=== PATIENT | male | born 1950 | race Caucasian/White ===

== ENCOUNTER → 2019-12-29 | Outpatient (CLI) | payer OTHER ==
[~2019-12-29] MED LIST: REGADENOSON 0.4 MG/5 ML PF SYG IVP SCH
== END | disposition home or self-care (01) ==
LOC: SHCH 08:52 → EDUNIT# 09:00
PROVIDERS: ATTEND Internal Medicine Cardiovascular Disease
DX: R06.02 Shortness of breath (principal)
CPT/HCPCS: 78452; 93017; 96374; A9500 ×2; J2785

== ENCOUNTER → 2019-12-29 | Outpatient (CLI) | payer OTHER | END | disposition home or self-care (01) | LOC: SHCH 09:22 | PROVIDERS: ATTEND Internal Medicine Cardiovascular Disease | DX: I65.22 Occlusion and stenosis of left carotid artery (principal) | CPT/HCPCS: 93880 ==

== ENCOUNTER 2020-01-26 07:32 | Day surgery (SDC) | payer OTHER ==
[2020-01-25 11:33] LABS: BASOPHILS % (AUTO) 0.7 % (0.0-5.0); HEMATOCRIT 45.2 % (42-54); LYMPHOCYTES % (AUTO) 16.7 % (21.0-51.0); MEAN CORPUSCULAR HEMOGLOBIN 28.9 pg (27.0-33.0); MEAN CORPUSCULAR HGB CONC 31.6 g/dL (32.0-36.0); MEAN CORPUSCULAR VOLUME 91.5 fL (79-99); MONOCYTES % (AUTO) 10.7 % (3.0-13.0); NEUTROPHILS % (AUTO) 70.3 % (40.0-77.0); PLATELET COUNT (AUTO) 321 K/uL (130-400); RED BLOOD CELL COUNT(AUTO) 4.94 MIL/uL (4.50-6.20); RED CELL DISTRIBUTION WIDTH 14.4 % (11.0-15.5)
[2020-01-25 11:41] LABS: CREATININE 1.4 mg/dL (0.5-1.5); POTASSIUM 4.5 mmol/L (3.5-5.1)
[2020-01-25 11:42] LABS: APPEARANCE,URINE Clear (CLEAR); BILIRUBIN,URINE Negative (NEGATIVE); COLOR,URINE Yellow (YELLOW); GLUCOSE, URINE (UA) Negative (NEGATIVE); KETONES,URINE Negative (NEGATIVE); LEUKOCYTE ESTERASE ,URINE Negative (NEGATIVE); NITRATE,URINE Negative (NEGATIVE); OCCULT BLOOD,URINE Negative (NEGATIVE); PROTEIN,URINE Negative (NEGATIVE); UROBILINOGEN,URINE 0.2 mg/dL (0.2-1.0)
[2020-01-25 11:43] VITALS: BP 119/55
[2020-01-25 11:45] LABS: INR 0.91 (0.85-1.15); PARTIAL THROMBOPLASTIN TIME 27.7 SEC (26.3-35.5); PROTHROMBIN TIME 9.9 SEC (9.6-11.6)
--- NOTE | 2020-01-25 16:33 | NUR ---
LABS ABNORMAL WBC , CREA, REPORTED TO DR Petra MCCULLOUGH. ALL LABS FAXED PER THERE REQUEST, NO FURTHER ORDERS GIVEN
[2020-01-26] VITALS (11 sets, daily range): BP systolic 112–135; BP diastolic 47–82
[~2020-01-26] VITALS: Ht 172.7 cm; Wt 80.3 kg
[~2020-01-26 07:32] MED LIST changes: +ASPI-556 PO; +ATOR40TA69 PO; +BUDE10.26 IH; +LISI-617 PO; +MIRT15TA6 PO; +PRED5TAB PO; -REGADENOSON 0.4 MG/5 ML PF SYG IVP SCH; +SODIUM CHLORIDE 0.9% 500ML 500 ML IV SCH; +TERA2CAP4 PO; +THEO400T3 PO; +TIOT18CA3 IH; +albuterol IH
[2020-01-26] MEDS ORDERED: SODIUM CHLORIDE 0.9% 1000ML 1,000 ML IV ONE (07:34)
[2020-01-26] MEDS ORDERED: ALBU90AE IH (07:55)
[2020-01-26] MEDS ORDERED: NITROGLYCERIN 2 MG/VIAL VIAL IV ONE (07:55)
[2020-01-26] MEDS ORDERED: IOHEXOL 350 MG/ML 100ML INFUS..BTL IV ONE (07:56)
[2020-01-26] MEDS ORDERED: LIDOCAINE HCL 2% 20ML ONE (07:56)
[2020-01-26] MEDS ORDERED: IOHEXOL-350 50ML VIAL IV ONE ×2 (07:56→10:12)
[2020-01-26] MEDS ORDERED: MIDAZOLAM HCL 1 MG/ML 2ML VIAL ONE (09:06)
--- NOTE | 2020-01-26 11:00 | NUR ---
POST RECEIVED PT BACK FROM [facility], S/P [facility], RIGHT GROIN WITH PERCLOSE CLOSURE DEVICE , SEE POST CATH ASSESSMENT, VS STABLE ON ARRIVAL. PT INSTRUCTED ON PLAN OF CARE AND TO REMAIN BEDREST FOR 4 HRS. PT INSTRUCTED TO CALL NURSE FOR ANY ASSISTANCE NEEDED, CALL LIGHT WITHIN REACH. PT DENIES ANY PAIN OR DISCOMFORTS.
[2020-01-26] MEDS: SODIUM CHLORIDE 0.9% 1000ML 1,000 ML IV SCH ×2 (13:36→14:24)
--- NOTE | 2020-01-26 15:55 | NUR ---
DISCHARGE INSTRUCTIONS PROVIDED TO PATIENT AND PATIENT'S CAREGIVER. POST OP APPOINTMENT PROVIDED AND HANDOUTS PROVIDED ON FEMORAL SITE CARE. ALL QUESTIONS/CONCERNS ADDRESSED.
--- NOTE | 2020-01-26 16:07 | NUR ---
PATIENT DISCHARGE FROM FACILITY VIA WHEELCHAIR BY [facility]. PATIENT ASSISTED INTO PRIVATE VEHICLE DRIVEN BY CAREGIVER.
== END 2020-01-26 16:07 | disposition home or self-care (01) ==
LOC: DAH 07:32
PROVIDERS: ATTEND Internal Medicine Cardiovascular Disease
DX: R94.39 Abnormal result of other cardiovascular function study (principal); I25.10 Atherosclerotic heart disease of native coronary artery without angina pectoris; J44.9 Chronic obstructive pulmonary disease, unspecified; I10 Essential (primary) hypertension; E78.5 Hyperlipidemia, unspecified; I73.9 Peripheral vascular disease, unspecified; Z79.899 Other long term (current) drug therapy; Z86.73 Personal history of transient ischemic attack (TIA), and cerebral infarction without residual deficits; Z98.890 Other specified postprocedural states; Z79.82 Long term (current) use of aspirin; Z79.01 Long term (current) use of anticoagulants; Z87.891 Personal history of nicotine dependence; Z72.89 Other problems related to lifestyle; Z82.49 Family history of ischemic heart disease and other diseases of the circulatory system; Z83.3 Family history of diabetes mellitus
CPT/HCPCS: 36415; 71045; 80048; 81003; 85025; 85610; 85730; 93005; 93458; A4215; A4216; A4221; A4222; A4223 ×3; A4606; A4663; C1760; C1894 ×2; J1644; J2250; J3490 ×2; J7030; Q9965; Q9967 ×3; 99156; 99157

== ENCOUNTER → 2022-03-22 | Outpatient (CLI) | payer OTHER ==
[2022-03-19 09:04] LABS: INR 0.99 (0.85-1.15); PROTHROMBIN TIME 10.8 SEC (9.6-11.6)
[2022-03-19 09:06] LABS: PARTIAL THROMBOPLASTIN TIME 29.1 SEC (26.3-35.5)
[~2022-03-22] MED LIST changes: +ALBU90AE IH; +LIDOCAINE HCL 1% 20 ML VIAL ONE; -LISI-617 PO; +LISI5TAB21 PO; +MIRT-22 PO; -MIRT15TA6 PO; -SODIUM CHLORIDE 0.9% 500ML 500 ML IV SCH; -albuterol IH
== END | disposition home or self-care (01) ==
LOC: RAH 03-19 07:35
PROVIDERS: ATTEND Family Medicine
DX: L04.2 Acute lymphadenitis of upper limb (principal); Z79.01 Long term (current) use of anticoagulants
CPT/HCPCS: 36415; 38505; 76942; 85610; 85730; 87070; 87076; C1887

== ENCOUNTER → 2023-07-23 | Outpatient (CLI) | payer OTHER ==
[~2023-07-23] MED LIST changes: -LIDOCAINE HCL 1% 20 ML VIAL ONE; +REGADENOSON 0.4 MG/5 ML PF SYG IVP ONE; +REGADENOSON 0.4 MG/5 ML PF SYG IVP SCH
== END | disposition home or self-care (01) ==
LOC: SHCH 09:05
PROVIDERS: ATTEND Internal Medicine Cardiovascular Disease
DX: R94.39 Abnormal result of other cardiovascular function study (principal); I25.10 Atherosclerotic heart disease of native coronary artery without angina pectoris; R00.1 Bradycardia, unspecified
CPT/HCPCS: 78452; 96374; 93017; J2785; A9500 ×2

== ENCOUNTER → 2024-10-31 | Outpatient (CLI) | payer OTHER ==
[~2024-10-31] MED LIST changes: -REGADENOSON 0.4 MG/5 ML PF SYG IVP ONE; -REGADENOSON 0.4 MG/5 ML PF SYG IVP SCH
--- NOTE | 2024-11-01 23:33 | HMCSR ---
APPROVED REPORT Laterality: Bilateral Indications i65.23 Surgery/Intervention Endarterectomy: left Doppler Spectral Velocity Analysis PSV / EDVPSV / EDV ECA (R) 93 / cm/sECA (L) 101 / cm/s dICA (R) 78 / 26 cm/sdICA (L) 72 / 20 cm/s Good (R) 64 / 16 cm/smICA (L) 68 / 19 cm/s pICA (R) 83 / 17 cm/spICA (L) 95 / 22 cm/s dCCA (R) 51 / 11 cm/sdCCA (L) 71 / 17 cm/s mCCA (R) 47 / 11 cm/smCCA (L) 77 / 19 cm/s pCCA (R) 64 / 12 cm/spCCA (L) 82 / 13 cm/s Vert (R) 39 / cm/sVert (L) 21 / cm/s Subl. (R) 148 / cm/sSubl. (L) 237 / cm/s ICA/CCA 1.30ICA/CCA 1.16 Technologist Impression Mild homogenous smooth plaque noted in the bilateral carotids, without hemodynamic significance. Bilateral vertebral arteries appear antegrade. Left subclavian artery velocities are suggestive of >50% stenosis. Conclusion Mild homogenous smooth plaque noted in the bilateral carotids, without hemodynamic significance. Right ICA/CCA ratio is 1.3 and left ICA/CCA ratio is 1.2. Bilateral vertebral arteries appear antegrade. Left subclavian artery velocities are suggestive of >50% stenosis. Conclusion Mild homogenous smooth plaque noted in the bilateral carotids, without hemodynamic significance. Right ICA/CCA ratio is 1.3 and left ICA/CCA ratio is 1.2. Bilateral vertebral arteries appear antegrade. Left subclavian artery velocities are suggestive of >50% stenosis.
== END | disposition home or self-care (01) ==
LOC: SHCH 11:11
PROVIDERS: ATTEND Internal Medicine Cardiovascular Disease
DX: I65.23 Occlusion and stenosis of bilateral carotid arteries (principal); I77.9 Disorder of arteries and arterioles, unspecified
CPT/HCPCS: 93880